=== PATIENT | male | born 1970 | race Caucasian/White ===

== ENCOUNTER 2019-12-23 04:32 | Emergency (ER) | payer OTHER ==
[~2019-12-23] VITALS: Ht 160 cm; Wt 80.0 kg
--- NOTE | 2019-12-23 04:50 | NUR ---
PT REPORTS SPIDER BITE ON RIGHT FOREARM. PT REPORTS NUMBNESS SENSATION DOWN BOTH ARMS AND LEGS. ERP AT BEDSIDE FOR EVAL
[2019-12-23] MEDS ORDERED: LORazepam 2 MG/ML, 1ML IVPush ONE (05:00)
[2019-12-23] MEDS ORDERED: LORazepam 2 MG/ML, 1ML ONE (05:04)
[2019-12-23 05:44] LABS: BASOPHILS # (AUTO) 0.03 x10^3/uL (0-0.1); BASOPHILS % (AUTO) 1 % (0-1); EOSINOPHILS % (AUTO) 2 % (1-7); LYMPHOCYTES % (AUTO) 31 % (22-44); MD NO; MEAN CORPUSCULAR HEMOGLOBIN 31.5 pg (27.5-34.5); MEAN CORPUSCULAR HGB CONC 33.6 g/dL (33.2-36.2); MEAN CORPUSCULAR VOLUME 93.6 fL (81-97); MONOCYTES # (AUTO) 0.41 x10^3/uL (0.2-0.8); MONOCYTES % (AUTO) 7 % (2-9); NEUTROPHILS # (AUTO) 3.77 x10^3/uL (1.8-6.8); NEUTROPHILS % (AUTO) 61 % (42-75); PLATELET COUNT 195 x10^3/uL (130-400); RED CELL DISTRIBUTION WIDTH 13.6 % (9.4-14.8)
[2019-12-23 05:59] LABS: CHLORIDE 110 mmol/L (98-107)
[2019-12-23 06:04] LABS: ANION GAP 4 mmol/L (5-15); CALCIUM 9.2 mg/dL (8.5-10.1); CREATININE 1.05 mg/dL (0.7-1.3)
[2019-12-23 06:17] VITALS: BP 115/77
== END 2019-12-23 06:23 | disposition home or self-care (01) ==
LOC: ED 05:24
DX: S50.11XA Contusion of right forearm, initial encounter (principal); F15.129 Other stimulant abuse with intoxication, unspecified; W57.XXXA Bitten or stung by nonvenomous insect and other nonvenomous arthropods, initial encounter; Y93.89 Activity, other specified; Y92.89 Other specified places as the place of occurrence of the external cause; Y99.8 Other external cause status
CPT/HCPCS: 36415; 73080; 80048; 85025; 96374; 99284; J2060; 82962

== ENCOUNTER 2021-03-11 23:47 | Emergency (ER) | payer SELFPAY ==
[~2021-03-11] VITALS: Ht 167.6 cm; Wt 70.0 kg
[2021-03-12] MEDS ORDERED: SODIUM CHLORIDE FLUSH 10ML SYR IVF ONE (00:30)
[2021-03-12] MEDS ORDERED: SODIUM CHLORIDE 0.9% 1,000ML IVBOLUS ONE (00:30)
[2021-03-12 00:35] LABS: BASOPHILS % (AUTO) 0 % (0-1); EOSINOPHILS % (AUTO) 0 % (1-7); LYMPHOCYTES % (AUTO) 8 % (22-44); MEAN CORPUSCULAR HEMOGLOBIN 31.6 pg (27.5-34.5); MEAN CORPUSCULAR HGB CONC 33.9 g/dL (33.2-36.2); MEAN PLATELET VOLUME 8.5 fL (7.4-10.4); MONOCYTES % (AUTO) 4 % (2-9); NEUTROPHILS % (AUTO) 87 % (42-75); PLATELET COUNT 222 x10^3/uL (130-400); RED BLOOD COUNT 5.37 x10^6/uL (4.38-5.82); RED CELL DISTRIBUTION WIDTH 13.3 % (9.4-14.8)
[2021-03-12 00:41] LABS: ALANINE AMINOTRANSFERASE 42 U/L (12-78); ALBUMIN 3.9 g/dL (3.4-5.0); ANION GAP 7 mmol/L (5-15); CALCIUM 9.1 mg/dL (8.5-10.1); CHLORIDE 106 mmol/L (98-107); CREATININE 1.03 mg/dL (0.7-1.3)
[2021-03-12 00:43] LABS: ALKALINE PHOSPHATASE 103 U/L (45-117); BILIRUBIN,TOTAL 0.4 mg/dL (0.2-1.0); TOTAL PROTEIN 8.1 g/dL (6.4-8.2)
[2021-03-12] MEDS ORDERED: ONDANSETRON ODT 4 MG ONE (01:47)
[2021-03-12] MEDS ORDERED: ONDANSETRON 2MG/ML, 2ML ONE (01:48)
--- NOTE | 2021-03-12 01:56 | NUR ---
PT TO ROOM FROM TRIAGE. WHILE CHANGING INTO GOWN PT BECAME VERY NAUSEOUS AND VOMITED GREEN EMESIS ABOUT 1100 MLS. MD AT BEDSIDE, GAVE VERBAL ORDER FOR 4 MG ZOFRAN IV. PT NOW IN BED REQUESTING WARM BLANKETS.
[2021-03-12] MEDS ORDERED: ONDANSETRON 2MG/ML, 2ML IVPush ONE (02:30)
--- NOTE | 2021-03-12 02:45 | NUR ---
pt able to drink small sips of h20 without any nasuea. ER MD aware. pt reports " I feel much better, especially after vomiting".
[2021-03-12 03:00] VITALS: BP 117/73
== END 2021-03-12 03:08 | disposition home or self-care (01) ==
LOC: ED 03-12
DX: A08.4 Viral intestinal infection, unspecified (principal)
CPT/HCPCS: 36415; 80053; 83690; 85025; 96361; 96374; 99283; J2405; J7030